=== PATIENT | female | born 1950 | race Caucasian/White ===

== ENCOUNTER 2017-11-28 08:24 | Outpatient (REF) | payer OTHER, SELFPAY ==
[2017-11-28 12:53] LABS: HCT 41.7 % (36.0-46.0); Mean Corp. HGB Concentration 33.6 g/dL (32.0-36.0); Mean Corpuscular Hemoglobin 31.7 pg (27.0-33.0); Mean Corpuscular Volume 94.3 fL (80-95); Platelet Count 216 x1000/uL (130-400); RBC 4.42 m/cumm (4.00-5.20); RBC Distribution Width 13.2 % (11.7-14.6)
[2017-11-28 13:39] LABS: ALT 38 U/L (12-78); AST 20 U/L (15-37); Albumin 3.6 g/dL (3.4-5.0); Alkaline Phosphatase 85 U/L (46-116); BUN 14 mg/dL (7-18); Bilirubin, Total 0.6 mg/dL (0.2-1.0); CREATININE 0.98 mg/dL (0.55-1.02); Chloride 104 mmol/L (98-107); Cholesterol 156 mg/dL (50-200); Estimated GFR 56.27 (mL/min/1.73m2); Glucose 189 mg/dL (70-100); HDL Cholesterol 65 mg/dL (40-60); LDL CHOLESTEROL 82 mg/dL (<100); Potassium 4.7 mmol/L (3.5-5.1); Sodium 140 mmol/L (136-145); Total Protein 7.4 g/dL (6.4-8.2); Triglyceride 124 mg/dL (30-150)
== END 2017-11-28 08:44 ==
LOC: NCHCN 08:24
PROVIDERS: Visit Provider Family Medicine
DX: E11.9 Type 2 diabetes mellitus without complications (principal); I10 Essential (primary) hypertension
CPT/HCPCS: 80053; 80061; 83721; 85027

== ENCOUNTER 2017-12-25 01:05 | Outpatient (CLI) | payer OTHER, SELFPAY ==
--- NOTE | 2017-12-25 11:55 | DI.MAMMO_ITS ---
SYMPTOMS/DIAGNOSIS: SCREENING, Z12.31 MAMMOGRAM: Mammograms were interpreted according to the usual protocol including computer analysis with CAD system, tomosynthesis and C view imaging. Comparison is made with exams from 2009 through 2015. The breasts are composed of scattered fibroglandular densities, breast density Category B. No suspicious masses or suspicious microcalcifications are seen. There has been no significant change. IMPRESSION: Category I B, negative mammogram. Routine screening is recommended. [facility] ASSESSMENT OF FINDINGS: Negative. Category 1. Patient will receive a letter notifying them of these results. BI-RADS category B. There are scattered areas of fibroglandular density.
== END 2017-12-25 01:25 ==
PROVIDERS: PCP Family Medicine; Visit Provider Family Medicine
DX: Z12.31 Encounter for screening mammogram for malignant neoplasm of breast (principal)
CPT/HCPCS: 77063; 77067

== ENCOUNTER 2019-11-23 03:39 | Outpatient (CLI) | payer OTHER, SELFPAY ==
--- NOTE | 2019-11-23 15:05 | DI.MAMMO_ITS ---
EXAM: MAMMO SCREENING CLINICAL HISTORY: SCREENING,Z12.31 TECHNIQUE: Mammograms were interpreted according to the usual protocol including computer analysis w [employer] CAD system, tomosynthesis and C-view imaging. COMPARISON: 2010 through 2017. FINDINGS: The breasts are composed of scattered fibroglandular densities, Breast Density category B. No suspicious masses or suspicious microcalcifications are seen. No skin thickening or abnormal axillary lymph nodes are seen. There has been no significant change from prior exams. IMPRESSION: BI-RADS Category 1, Negative mammogram Yearly screening mammography is recommended. Breast Density - Category B, scattered fibroglandular densities. A negative radiographic report should not delay biopsy if a dominant or clinically suspicious mass is present. Up to ten percent of cancers are not identified on mammography. A negative report may reinforce clinical impression. Adenosis and dense breasts may obscure an underlying neoplasm. False positive reports average 6 to 10%. Patient will receive a letter notifying them of these results.
== END 2019-11-23 03:59 ==
PROVIDERS: PCP Family Medicine; Visit Provider Family Medicine
DX: Z12.31 Encounter for screening mammogram for malignant neoplasm of breast (principal)
CPT/HCPCS: 77063; 77067

== ENCOUNTER 2021-12-17 11:41 | Outpatient (CLI) | payer MEDICARE, SELFPAY ==
--- NOTE | 2021-12-17 11:15 | DI.RAD_ITS ---
Exam(s) XR KNEE RT 3V AP,LAT,AMY EXAM: XR KNEE RT 3V AP,LAT,AMY CLINICAL HISTORY: R knee pain. TECHNIQUE: 2D digital imaging was performed. Three views. COMPARISON: No exams were available for comparison FINDINGS: BONES: No acute fracture is present. No bony destructive lesion is seen. JOINTS: There is severe narrowing of the medial femoral tibial joint space with prominent periarticul ar spurring. Spurring is also noted at the lateral femoral tibial joint and patellofemoral joint. S purring is also present at the tibial spines and femoral intercondylar notch. No joint effusion is s een. SOFT TISSUE: Normal. IMPRESSION: Severe degenerative changes of the medial femoral tibial joint. DATA REPOSITORY: RADIATION DOSE DELIVERED:
== END 2021-12-17 11:42 | disposition home or self-care (01) ==
LOC: DIORS 11:41
PROVIDERS: PCP Family Medicine; Referring Provider Family Medicine; Visit Provider Physician Assistant
DX: M17.11 Unilateral primary osteoarthritis, right knee
CPT/HCPCS: 73562; 99203

== ENCOUNTER 2022-08-15 03:24 | Outpatient (CLI) | payer MEDICARE, SELFPAY ==
--- NOTE | 2022-08-15 | DI.NM_ITS ---
APPROVED REPORT Exam: Exercise Treadmill Patient Location: Out-Patient Room/Bed: Stress Nurse: Lizeth White RN Ordering Provider:RAFFI HILARIO, Contact Number: [phone] BMI: 27.28 Baseline Rhythm: Sinus Bradycardia Indications: Angina, DM Medical History Medical History: HTN,HLD, OA of right knee, DM Cardiac Medications: Metformin, Lisinopril, Atorvastatin Allergies: NKA Cardiac Risk Factors: +HTN, +HLD,+DM, history of smoking Previous Cardiac Procedures: None Pretest Chest Pain Characteristics: None Exercise History: Indeterminate Physical Disabilities: None Lung Sounds: LCTA bilaterally Heart Sounds: Regular, S1/S2 Stress Test Details Test: Exercise stress testing was performed using a Gavin protocol. Nuclear Acquisition: Rest Tc-99m/Stress Tc-99m 1 day Rest Isotope: Tc-99m Sestamibi. Dose: 9.4 Date: 08/15/2022 Injection Time: 09:00 Stress Isotope: Tc-99m Sestamibi. Dose: 29.5 Date: 08/15/2022 Injection Time: 10:55 HR Resting HR Supine: 52 bpm Max Heart Rate (APMHR): 147.121644 bpm Resting HR Standin bpm Target HR (85% APMHR): 124.801012 bpm Max HR Achieved: 138 bpm % of APMHR: 93.88 Recovery HR: 63 bpm HR response to stress: Normal HR response to stress BP Resting BP Supine: 128/72 mmHg Resting BP Standin/74 mmHg Max BP: 172/52 mmHg Recovery BP: 140/72 mmHg BP response to stress: Normal blood pressure response to stress. ECG Resting ECG: Sinus Bradycardia Ectopy: PVC's Stress ECG: Sinus Tachycardia ST Change: No significant ST segment changes noted Arrhythmia: PVC's Recovery ECG: Sinus Rhythm Recovery ST Change: No significant ST segment changes noted Recovery Arrhythmia: PVC's Clinical Reason for Termination: Fatigue Stress Symptoms: General Fatigue Exercise duration: 5 min11 sec Highest Stage Reached: Stage 2: 2.5 mph at 12% grade. Exercise capacity: 7.05 METs Angina Score: None Sheth Treadmill Score: 4.5 Rate Pressure Product: 80131 Stress ECG Conclusion 1. Resting electrocardiogram was within normal limits 2. Patient exercised on the Gavin protocol and completed a workload of 7.05 METS 3. Normal heart rate and blood pressure response to exercise. The patient achieved 94% of predicted heart rate for age 4. There was no electrocardiographic evidence of myocardial ischemia 5. There were no significant dysrhythmias 6. See MPI report Sheth Treadmill Score is 4.5 which is Moderate risk. Stress Test Summary STAGE Time (mins) Speed (mph) Grade (%) HR BP SpO2 SYMPTOMS METS Supine 52 128/72 98% Standing 70 132/74 1 3 1.7 10 114 148/60 95% 4.5 2 6 2.5 12 133 7 1 min recovery 121 172/52 3 min recovery 67 150/58 6 min recovery 63 140/72 MPI Conclusion Myocardial perfusion is normal. There is no ischemia or evidence of prior infarction Ejection fraction is 63% with normal wall motion Radiologist Interpretation Radiologist Interpretation by: Robby Erazo MD Interpretation Date/Time: 08/21/2022 15:48:24
== END 2022-08-15 03:44 ==
LOC: DI 03:24
PROVIDERS: PCP Family Medicine; Visit Provider Family Medicine
DX: I20.9 Angina pectoris, unspecified (principal)
CPT/HCPCS: 78452; 93016; 93018; 93017

== ENCOUNTER 2022-11-21 22:55 | Outpatient (REF) | payer MEDICARE, SELFPAY ==
[2022-11-21 22:37] LABS: BUN 20 mg/dL (7-18); Calcium 9.1 mg/dL (8.5-10.1); Calculated LDL 69 mg/dL (<100); Chloride 103 mmol/L (98-107); Cholesterol 128 mg/dL (<200); Estimated GFR 59.12 (mL/min/1.73m2); Glucose 123 mg/dL (74-106); HDL Cholesterol 45 mg/dL (40-60); Potassium 4.5 mmol/L (3.5-5.1); Sodium 138 mmol/L (136-145); Triglyceride 74 mg/dL (<150)
== END 2022-11-21 22:56 | disposition home or self-care (01) ==
LOC: NCHCN 22:55
PROVIDERS: PCP Family Medicine; Visit Provider Family Medicine
DX: I10 Essential (primary) hypertension (principal); M54.9 Dorsalgia, unspecified; R82.79 Other abnormal findings on microbiological examination of urine; E78.5 Hyperlipidemia, unspecified
CPT/HCPCS: 80048; 80061; 87077; 87086; 87186

== ENCOUNTER 2022-12-02 18:26 | Outpatient (REF) | payer MEDICARE, SELFPAY ==
[2022-12-02 21:42] LABS: ESR 74 mm/hr (0-30)
[2022-12-02 21:47] LABS: Abs Immature Grans 0.03 10^3/uL (0.0-0.06); Absolute Basophil Count 0.06 10^3/uL (0.0-0.2); Absolute Eosinophil Count 0.22 10^3/uL (0.0-0.7); Absolute Lymphocyte Count 1.27 10^3/uL (1.2-3.4); Absolute Monocyte Count 0.96 10^3/uL (0.1-0.8); Absolute Neutrophil Count 7.42 10^3/uL (1.2-6.7); Basophils % 0.6; Eosinophils % 2.2; HCT 29.2 % (36.0-46.0); HGB 9.8 g/dL (11.2-15.7); Immature Grans % 0.3; Lymphocytes % 12.8; MCH 30.7 pg (27.0-33.0); MCHC 33.6 % (32.0-36.0); MCV 92 fL (80-95); MPV 9.8 fL (8.0-11.0); Monocytes % 9.6; Neutrophils % 74.5; Platelet Count 495 10^3/uL (130-400); RBC 3.19 10^6/uL (3.93-5.22); RDW 11.9 % (11.7-14.6); RDW-SD 40.3 fL; WBC 9.96 10^3/uL (4.4-10.8)
[2022-12-02 22:14] LABS: ALT 40 U/L (14-59); AST 28 U/L (15-37); Albumin 2.6 g/dL (3.4-5.0); Alkaline Phosphatase 80 U/L (46-116); Anion Gap 8.4 mmol/L (3-11); BUN 16 mg/dL (7-18); Bilirubin, Total 0.3 mg/dL (0.2-1.0); CO2 26.6 mmol/L (21.0-32.0); Calcium 9.6 mg/dL (8.5-10.1); Chloride 101 mmol/L (98-107); Estimated GFR 59.12 (mL/min/1.73m2); Glucose 130 mg/dL (74-106); Potassium 4.1 mmol/L (3.5-5.1); Sodium 136 mmol/L (136-145); Total Protein 7.2 g/dL (6.4-8.2)
[2022-12-04 10:29] LABS: Lyme Ab w Rflx to Lyme Confirm Negative (Negative)
[2022-12-05 20:06] LABS: Anaplasma phagocytophilum Negative (Negative); B. miyamotoi PCR Negative (Negative); Babesia divergens/MO-1 Negative (Negative); Babesia duncani Negative (Negative); Babesia microti Negative (Negative); Ehrlichia chaffeensis Negative (Negative); Ehrlichia ewingii/canis Negative (Negative); Ehrlichia muris eauclairensis Negative (Negative)
== END 2022-12-02 18:27 | disposition home or self-care (01) ==
LOC: NCHCN 18:26
PROVIDERS: PCP Family Medicine; Visit Provider Family Medicine
DX: M54.2 Cervicalgia (principal); R70.0 Elevated erythrocyte sedimentation rate; R73.09 Other abnormal glucose; I10 Essential (primary) hypertension; Z11.8 Encounter for screening for other infectious and parasitic diseases
CPT/HCPCS: 80053; 85652; 87798; 85025; 86618

== ENCOUNTER → 2022-12-05 02:22 | Outpatient (CLI) | payer MEDICARE, SELFPAY ==
--- NOTE | 2022-12-05 | DI.RAD_ITS ---
Exam(s) XR CERVICAL SPINE COMP 4-5V EXAM: XR CERVICAL SPINE COMP 4-5V CLINICAL HISTORY: NECK PAIN, M54.2. TECHNIQUE: 2D digital imaging was performed. COMPARISON: No exams were available for comparison FINDINGS: BONES: No fracture or destructive lesion. Vertebral bodies are unremarkable. Facet degenerative taisha nges noted throughout, greatest at C3-4 and C7-T1. DISKS: Mild narrowing at the C5-6 disc space with endplate osteophytes. Small osteophytes noted at C 6-7. Mild neural foraminal narrowing on the right at C5-6 and C6-7. Significant neural foraminal na rrowing on the left at C3-4. ALIGNMENT: Cervical spinal alignment is within normal limits. The odontoid and atlantoaxial articulat ions are normal. SOFT TISSUE: Normal. The lung apices are clear. IMPRESSION: Degenerative disc changes greatest at C5-6. Facet encroachment to the left neural foramen at C3-4. DATA REPOSITORY: RADIATION DOSE DELIVERED:
== END ==
PROVIDERS: PCP Family Medicine; Visit Provider Family Medicine
DX: M50.322 Other cervical disc degeneration at C5-C6 level (principal); M99.71 Connective tissue and disc stenosis of intervertebral foramina of cervical region
CPT/HCPCS: 72050

== ENCOUNTER 2022-12-11 15:32 | Outpatient (REF) | payer MEDICARE, SELFPAY ==
[2022-12-11 18:38] LABS: C-Reactive Protein 5.45 mg/dL (0.0-0.3); Creatine Kinase 36 U/L (26-192); LDH 202 U/L (81-234)
[2022-12-11 19:16] LABS: Vitamin B12 642 pg/mL (193-986)
[2022-12-11 20:41] LABS: Iron 24 ug/dL (50-170); Total Iron Binding Capacity 235 ug/dL (250-450); Transferrin Sat 10 % (15-50)
[2022-12-12 09:00] LABS: ESR (LRH) 89 mm/hr
[2022-12-12 18:05] LABS: Rheumatoid Factor <8.6 IU/mL (<12.0)
[2022-12-13 09:39] LABS: Cyclic Citrullinated Peptide <2.5 U/mL (<5.0)
[2022-12-13 13:15] LABS: ANA Interpretation Positive (Negative); ANA Titer Pattern 1:160 Speckled
[2022-12-13 13:46] LABS: Comment (See Note); Total Protein 7.6 g/dL (6.3-8.2)
[2022-12-18 08:21] LABS: Immunotyping, Serum (See Note)
== END 2022-12-11 15:33 | disposition home or self-care (01) ==
LOC: NCHCN 15:32
PROVIDERS: PCP Family Medicine; Visit Provider Family Medicine
DX: D64.9 Anemia, unspecified (principal); E11.9 Type 2 diabetes mellitus without complications; I10 Essential (primary) hypertension; N30.00 Acute cystitis without hematuria; M54.59 Other low back pain; R70.0 Elevated erythrocyte sedimentation rate; Z79.899 Other long term (current) drug therapy; E78.5 Hyperlipidemia, unspecified
CPT/HCPCS: 82550; 85652; 86200; 82565; 82607; 83540; 83550; 83615; 84156; 84165; 86038; 86140; 86320; 86431

== ENCOUNTER → 2022-12-12 09:36 | Outpatient (CLI) | payer MEDICARE, SELFPAY ==
--- NOTE | 2022-12-12 | DI.RAD_ITS ---
Exam(s) XR CHEST 2V PA LATERAL EXAM: XR CHEST 2V PA LATERAL CLINICAL HISTORY: SUPRACLAVICULAR LYMPHADENOPATHY,R59.0. TECHNIQUE: 2D digital imaging was performed. COMPARISON: No exams were available for comparison FINDINGS: 2 views: Heart size is normal. The mediastinum is not widened. Lungs are clear. No infiltrates nor pleural effusions. IMPRESSION: No acute pulmonary findings. DATA REPOSITORY: RADIATION DOSE DELIVERED:
--- NOTE | 2022-12-12 | DI.RAD_ITS ---
Exam(s) XR WRIST RT COMPLETE EXAM: XR WRIST RT COMPLETE CLINICAL HISTORY: WRIST ATHRALGIA,M25.539. TECHNIQUE: 2D digital imaging was performed. COMPARISON: No exams were available for comparison FINDINGS: 3 views No evidence of acute fracture nor dislocation. No significant ulnar variance. Calcifications noted in triangular fibrocartilage on the medial aspect of the wrist. There is some degenerative change at the try scaphoid joint. First carpometacarpal joint appears unremarkable. Scapholunate distance no rmal. Radiocarpal joint appears unremarkable. IMPRESSION: Degenerative changes as described above. No fracture evident. DATA REPOSITORY: RADIATION DOSE DELIVERED:
== END ==
PROVIDERS: PCP Family Medicine; Visit Provider Family Medicine
DX: M19.031 Primary osteoarthritis, right wrist (principal); R59.0 Localized enlarged lymph nodes
CPT/HCPCS: 71046; 73110

== ENCOUNTER 2022-12-12 11:07 | Outpatient (REF) | payer MEDICARE, SELFPAY ==
[2022-12-12 14:32] LABS: Bilirubin Negative (Negative); Blood Negative (Negative); Clarity Clear (Clear); Glucose Negative (Negative); Ketones Negative (Negative); Leukocyte Esterase Trace (Negative); Nitrite Negative (Negative); Urobilinogen 0.2 mg/dL (Up to 0.2); pH 5.5 (5-8)
[2022-12-12 17:53] LABS: Creatinine,Urine 87.19 mg/dL
== END 2022-12-12 11:08 | disposition home or self-care (01) ==
LOC: NCHCN 11:07
PROVIDERS: PCP Family Medicine; Visit Provider Family Medicine
DX: E11.9 Type 2 diabetes mellitus without complications (principal); I10 Essential (primary) hypertension; D64.9 Anemia, unspecified
CPT/HCPCS: 81003; 82565

== ENCOUNTER 2022-12-18 10:04 | Emergency (ER) | payer MEDICARE, SELFPAY ==
[2022-12-18] VITALS (47 sets, daily range): BP systolic 105–146; BP diastolic 44–58; PULSE 49–63; RESP 11–22; TEMP 36.4; O2SAT 94–100
--- NOTE | 2022-12-18 09:45 | RT.EKG_ITS ---
APPROVED REPORT Exam: Resting ECG Reason for Exam: syncopal, hypotensive Patient Location: E HR:55 bpm ECG Measurements Heart Rate 55 AXIS WA 140 P 59 QRSd 100 QRS -2 QT 455 T 66 QTc 435 Conclusion Sinus bradycardia...rate< 60
--- NOTE | 2022-12-18 10:58 | ED.GENADUL_ITS ---
Discharge Plan Disposition Patient Disposition: Home Condition: Stable Discharge Details Clinical Impression: Vasovagal syncope, Leukocytosis, Anemia Primary Care Provider: Bibiana Rodríguez ED Provider: Moustapha Bell Home Meds and New Rx's Prescriptions: Continued atorvastatin 10 mg tablet 10 mg PO DAILY lisinopril 10 mg tablet 10 mg PO DAILY prednisone 10 mg Tablet 10 mg PO DIRECTED Rx Instructions: see taper instructions- Take 5 tablets once daily for 5 days, 3 tabs once daily for 3 days, 2 tabs once daily for 3 days, 1 tab once daily for 3 days- ordered 12/11/22 glipizide 10 mg Tablet Extended Release 24hr 10 mg PO DAILY ferrous sulfate 325 mg (65 mg iron) Tablet 325 mg PO DAILY Januvia 100 mg Tablet 100 mg PO DAILY diclofenac sodium [Voltaren Arthritis Pain] 1 % Gel 4 g TOPICAL QID Patient Comments: Just ordered- has not started yet 12/18/22 CT Rx Instructions: apply to single knee, ankle, foot; for foot includes sole/toes/top of foot Discontinued metformin 500 mg tablet 1,000 mg PO BID Patient Comments: no longer taking 12/18/22 CT Discharge Instructions Instructions: Syncope (ED), Anemia (ED) Additional Instructions: Please maintain adequate hydration allow for plenty of rest. Please contact your primary care physician to arrange follow-up. Return to the ER immediately for any worsening or new concerning symptoms. Referrals: Bibiana Rodríguez [Primary Care Provider] - Medical Decision Making 11:00-? 72-year-old female sent by PCP for syncopal episode during blood draw today with associated chest discomfort. Patient now asymptomatic. Of note she was generally weak this morning. Patient now hemodynamically stable. Suspect vasovagal syncope in setting of hypovolemia. Consider arrhythmia and ACS. Initial EKG was reviewed and interpreted by me: Please see report, no STEMI. 14:45 --labs reviewed: Initial troponin and delta troponin at 3 hours negative. Leukocytosis of 20,000 noted. Patient has had no fever or chills. Patient has had no urinary symptoms. Urinalysis was checked and she does have 5-10 WBCs, 0- 2 RBCs, negative nitrite, few bacteria with rare epithelial cells. Clinical picture not consistent with urinary tract infection. Urine culture has been sent. I suspect leukocytosis is secondary to prednisone use. Patient did just have chest x-ray performed on 12/12/2022 that showed no acute pulmonary findings. Patient reassessed remained hemodynamically stable. No complaints. All results were discussed with the patient. Plan for discharge with outpatient follow-up. I recommended she have repeat CBC later this week. She was encouraged to call her doctor today to arrange follow- up. Disposition decision was made weighing the risks and benefits of hospitalization versus outpatient treatment, the risk for further decompensation, and the patient's wishes. The patient was stable and requested discharge. Prior to discharge, my usual and customary return precautions were reviewed with the patient - this included follow-up instructions and reason to return to the emergency department if condition worsens, does not improve as expected, or other new concerns arise. Lab Data Lab results reviewed: Yes I reviewed the patient's lab results. Labs: 12/18/22 12:45 Urine - Reflex from Ua Urine Culture - Pending Laboratory Tests Range/Units 12/18/22 12/18/22 12/18/22 10:08 10:08 10:08 WBC (4.4-10.8) 10^3/uL 20.59 H RBC (3.93-5.22) 10^6/uL 3.54 L Hgb (11.2-15.7) g/dL 10.6 L Hct (36.0-46.0) % 32.1 L MCV (80-95) fL 91 MCH (27.0-33.0) pg 29.9 MCHC (32.0-36.0) % 33.0 RDW (11.7-14.6) % 12.8 Plt Count (130-400) 10^3/uL 473 H MPV (8.0-11.0) fL 9.8 Immature Gran % 0.7 Neutrophils % 86.5 Lymphocytes % 7.3 Monocytes % 4.9 Eosinophils % 0.4 Basophils % 0.2 Nucleated RBC % (0.0-0.3) % 0.0 Absolute Neutrophils (1.2-6.7) 10^3/uL 17.81 H Absolute Lymphocytes (1.2-3.4) 10^3/uL 1.50 Absolute Monocytes (0.1-0.8) 10^3/uL 1.01 H Absolute Eosinophils (0.0-0.7) 10^3/uL 0.08 Absolute Basophils (0.0-0.2) 10^3/uL 0.04 APTT Cancelled Sodium (136-145) mmol/L 135 L Potassium (3.5-5.1) mmol/L 3.5 Chloride (98-107) mmol/L 101 Carbon Dioxide (21.0-32.0) mmol/L 25.7 Anion Gap (3-11) mmol/L 8.3 BUN (7-18) mg/dL 32 H Creatinine (0.55-1.02) mg/dL 1.1 H Est GFR (CKD-EPI 2020) (mL/min/1.73m2) 52.73 Glucose (74-106) mg/dL 148 H Calcium (8.5-10.1) mg/dL 9.6 Magnesium (1.8-2.4) mg/dL 1.8 Total Bilirubin (0.2-1.0) mg/dL 0.3 AST (15-37) U/L 16 ALT (14-59) U/L 26 Alkaline Phosphatase (46-116) U/L 84 Troponin I (<or=60) ng/L < 50 Total Protein (6.4-8.2) g/dL 7.7 Albumin (3.4-5.0) g/dL 2.8 L Urine Color (Yellow) Urine Clarity (Clear) Urine pH (5-8) Ur Specific [place] (1.005-1.025) Urine Protein (Negative) mg/dL Urine Ketones (Negative) mg/dL Urine Blood (Negative) Urine Nitrite (Negative) Urine Bilirubin (Negative) Urine Urobilinogen (Up to 0.2) mg/dL Ur Leukocyte Esterase (Negative) Urine RBC (0-2) HPF Urine WBC (0-5) HPF Ur Epithelial Cells (Negative) HPF Urine Crystals (Negative) HPF Urine Bacteria (Negative) HPF Urine Casts (Negative) LPF Urine Mucus (Negative) Ur Culture Indicated? Urine Glucose (Negative) mg/dL Range/Units 12/18/22 12/18/22 12/18/22 12:11 12:45 13:43 WBC (4.4-10.8) 10^3/uL RBC (3.93-5.22) 10^6/uL Hgb (11.2-15.7) g/dL Hct (36.0-46.0) % MCV (80-95) fL MCH (27.0-33.0) pg MCHC (32.0-36.0) % RDW (11.7-14.6) % Plt Count (130-400) 10^3/uL MPV (8.0-11.0) fL Immature Gran % Neutrophils % Lymphocytes % Monocytes % Eosinophils % Basophils % Nucleated RBC % (0.0-0.3) % Absolute Neutrophils (1.2-6.7) 10^3/uL Absolute Lymphocytes (1.2-3.4) 10^3/uL Absolute Monocytes (0.1-0.8) 10^3/uL Absolute Eosinophils (0.0-0.7) 10^3/uL Absolute Basophils (0.0-0.2) 10^3/uL APTT 23.2 Sodium (136-145) mmol/L Potassium (3.5-5.1) mmol/L Chloride (98-107) mmol/L Carbon Dioxide (21.0-32.0) mmol/L Anion Gap (3-11) mmol/L BUN (7-18) mg/dL Creatinine (0.55-1.02) mg/dL Est GFR (CKD-EPI 2020) (mL/min/1.73m2) Glucose (74-106) mg/dL Calcium (8.5-10.1) mg/dL Magnesium (1.8-2.4) mg/dL Total Bilirubin (0.2-1.0) mg/dL AST (15-37) U/L ALT (14-59) U/L Alkaline Phosphatase (46-116) U/L Troponin I (<or=60) ng/L < 50 Total Protein (6.4-8.2) g/dL Albumin (3.4-5.0) g/dL Urine Color (Yellow) Yellow Urine Clarity (Clear) Clear Urine pH (5-8) 5.5 Ur Specific [place] (1.005-1.025) 1.025 Urine Protein (Negative) mg/dL Negative Urine Ketones (Negative) mg/dL Trace H Urine Blood (Negative) Negative Urine Nitrite (Negative) Negative Urine Bilirubin (Negative) Negative Urine Urobilinogen (Up to 0.2) mg/dL 0.2 Ur Leukocyte Esterase (Negative) Small H Urine RBC (0-2) HPF 0-2 Urine WBC (0-5) HPF 5-10 Ur Epithelial Cells (Negative) HPF Rare Urine Crystals (Negative) HPF Negative Urine Bacteria (Negative) HPF Few Urine Casts (Negative) LPF Negative Urine Mucus (Negative) Moderate Ur Culture Indicated? Yes Urine Glucose (Negative) mg/dL Negative HPI General Mode of arrival: ambulatory . Date/Time Provider Initiated Documentation: 12/18/22 10:25 . Limitations to Documentation: no limitations . Information obtained by: patient and RN/MD . HPI Narrative: 72-year-old female with history of diabetes, presents with chief complaint of syncope. Patient was having blood drawn at PCP office and felt dizzy and lost consciousness. She was laid down and symptoms improved. His symptoms did seem to wax and wane for a period of time. IV was placed and she received 1 L of crystalloid. Patient now notes she is feeling better. Asymptomatic at this time. Patient notes that she experienced some indigestion during the episode. She has no chest discomfort abdominal pain at this time. Patient is being worked up actively by PCP. Polyarthralgia with labs notable for anemia, low albumin, elevated ESR. Related Data Home Medications Medication Instructions Recorded Confirmed atorvastatin 10 mg tablet 10 mg PO DAILY 10/17/21 12/18/22 lisinopril 10 mg tablet 10 mg PO DAILY 10/17/21 12/18/22 diclofenac sodium 1 % topical gel 4 g topical QID 12/18/22 12/18/22 (Voltaren Arthritis Pain) ferrous sulfate 325 mg (65 mg 325 mg PO DAILY 12/18/22 12/18/22 iron) tablet glipizide 10 mg tablet, extended 10 mg PO DAILY 12/18/22 12/18/22 release 24 hr prednisone 10 mg tablet 10 mg PO DIRECTED 12/18/22 12/18/22 sitagliptin phosphate 100 mg 100 mg PO DAILY 12/18/22 12/18/22 tablet (Januvia) Allergies Allergy/AdvReac Type Severity Reaction Status Date / Time No Known Allergies Allergy Verified 12/18/22 10:07 General Stated Complaint: [id number] HOLLIS: 3 Review of Systems All systems reviewed & are unremarkable except as noted in HPI and below Constitutional Constitutional: Denies fever(s) Cardiovascular Cardiovascular: Reports as per HPI PFSH All Active Problems (Updated 12/18/22 @ 14:48 by Moustapha Bell MD) Vasovagal syncope (Acute) Leukocytosis (Acute) Anemia (Chronic) Primary osteoarthritis of right knee (Acute) Hypertension (Chronic) Hyperlipidemia (Acute) Diabetes mellitus (Chronic) Social History Smoking/Tobacco Use Status: Never Smoking risk assessment performed?: Yes Alcohol Intake: never Drug use: Never Substance use type: does not use Exam Const General: cooperative and no acute distress HENMT Mouth: moist mucous membranes Eyes Conjunctivae: normal conjunctivae Sclera: normal sclerae Neck Neck: trachea midline and supple Resp Auscultation: clear to auscultation bilaterally, no rales, no rhonchi and no w heezes Cardio Rate: regular rate and not tachycardic Rhythm: regular rhythm GI Palpation: soft, not firm, no guarding, no masses, not rigid and nontender Skin General skin exam: no rashes or lesions noted Neuro General: patient alert, patient awake, patient oriented x3 and tone normal Extrem General: no calf tenderness and no edema Psych Appearance: grossly normal Mental Status: mental status grossly normal Course Vital Signs Vital signs: Vital Signs Temperature 36.4 C 12/18/22 10:02 Pulse 56 L 12/18/22 10:02 Respiratory Rate 16 12/18/22 10:02 Blood Pressure 142/52 H 12/18/22 10:02 Pulse Oximetry 99 12/18/22 10:02 Temperature 36.4 C 12/18/22 10:02 Temperature Source Oral 12/18/22 10:02 Pulse 56 L 12/18/22 10:02 Respiratory Rate 16 12/18/22 10:02 Respiratory Effort Normal, Non-Labored 12/18/22 10:20 Respiratory Depth Normal 12/18/22 10:20 Respiratory Pattern Normal 12/18/22 10:20 Blood Pressure 142/52 H 12/18/22 10:02 Blood Pressure Position Supine 12/18/22 10:02 Pulse Oximetry 99 12/18/22 10:02 Oxygen Delivery Method Room Air 12/18/22 10:02 Oxygen Flow Rate 0 12/18/22 10:02 Pain Level 0 12/18/22 10:02
[2022-12-18 11:20] LABS: Abs Immature Grans 0.15 10^3/uL (0.0-0.06); Absolute Basophil Count 0.04 10^3/uL (0.0-0.2); Absolute Monocyte Count 1.01 10^3/uL (0.1-0.8); Basophils % 0.2; Eosinophils % 0.4; HCT 32.1 % (36.0-46.0); HGB 10.6 g/dL (11.2-15.7); Immature Grans % 0.7; Lymphocytes % 7.3; MCH 29.9 pg (27.0-33.0); MCV 91 fL (80-95); MPV 9.8 fL (8.0-11.0); Monocytes % 4.9; Neutrophils % 86.5; Platelet Count 473 10^3/uL (130-400); RBC 3.54 10^6/uL (3.93-5.22); RDW 12.8 % (11.7-14.6); RDW-SD 42.1 fL; WBC 20.59 10^3/uL (4.4-10.8)
[2022-12-18 11:21] LABS: Absolute Eosinophil Count 0.08 10^3/uL (0.0-0.7); Absolute Neutrophil Count 17.81 10^3/uL (1.2-6.7)
[2022-12-18 11:40] LABS: ALT 26 U/L (14-59); AST 16 U/L (15-37); Albumin 2.8 g/dL (3.4-5.0); Alkaline Phosphatase 84 U/L (46-116); Anion Gap 8.3 mmol/L (3-11); BUN 32 mg/dL (7-18); Bilirubin, Total 0.3 mg/dL (0.2-1.0); CO2 25.7 mmol/L (21.0-32.0); CREATININE 1.1 mg/dL (0.55-1.02); Calcium 9.6 mg/dL (8.5-10.1); Chloride 101 mmol/L (98-107); Estimated GFR 52.73 (mL/min/1.73m2); Glucose 148 mg/dL (74-106); Magnesium 1.8 mg/dL (1.8-2.4); Potassium 3.5 mmol/L (3.5-5.1); Sodium 135 mmol/L (136-145); Total Protein 7.7 g/dL (6.4-8.2); Troponin I < 50 ng/L (<or=60)
[2022-12-18 12:26] LABS: PTT Activated 23.2 sec (21.5-31.9)
[2022-12-18 12:56] LABS: Bilirubin Negative (Negative); Blood Negative (Negative); Clarity Clear (Clear); Glucose Negative (Negative); Ketones Trace mg/dL (Negative); Leukocyte Esterase Small (Negative); Nitrite Negative (Negative); Specific Gravity 1.025 (1.005-1.025); Urobilinogen 0.2 mg/dL (Up to 0.2); pH 5.5 (5-8)
[2022-12-18 13:06] LABS: Bacteria Few HPF (Negative); Crystals Negative HPF (Negative); Epithelial Cells Rare HPF (Negative); Mucus Moderate (Negative); RBC 0-2 HPF (0-2)
[2022-12-18 13:07] LABS: C & S Indicated? Yes; Casts Negative LPF (Negative)
[2022-12-18 14:05] LABS: Troponin I < 50 ng/L (<or=60)
[2022-12-18 14:56] LABS: Source Nasal/Nares
[2022-12-18 15:31] LABS: COVID-19 PCR Negative (Negative)
[2022-12-19 10:04] LABS: Lyme Ab w Rflx to Lyme Confirm Negative (Negative)
[2022-12-21 10:03] LABS: Anaplasma phagocytophilum Negative (Negative); B. miyamotoi PCR Negative (Negative); Babesia divergens/MO-1 Negative (Negative); Babesia duncani Negative (Negative); Babesia microti Negative (Negative); Ehrlichia chaffeensis Negative (Negative); Ehrlichia ewingii/canis Negative (Negative); Ehrlichia muris eauclairensis Negative (Negative)
== END 2022-12-18 15:02 | disposition home or self-care (01) ==
LOC: ER 15:10
PROVIDERS: Emergency Provider Student in an Organized Health Care Education/Training Program; PCP Family Medicine
DX: R55 Syncope and collapse (principal); R00.1 Bradycardia, unspecified; D72.829 Elevated white blood cell count, unspecified; D64.9 Anemia, unspecified; I10 Essential (primary) hypertension; E78.5 Hyperlipidemia, unspecified; E11.9 Type 2 diabetes mellitus without complications; Z79.84 Long term (current) use of oral hypoglycemic drugs
CPT/HCPCS: 36415; 80053; 87635; 87798; 93005; 99283; 81003; 81015; 83735; 84484; 85025; 85730; 86618; 87086; 93010; 99284

== ENCOUNTER 2022-12-18 10:14 | Outpatient (REF) | payer MEDICARE, SELFPAY ==
[2022-12-19 17:54] LABS: Scl 70 Antibodies, IgG <0.2 U
[2022-12-20 12:47] LABS: SS-B (La) Ab, IgG 2.3 Units (<20.0)
[2022-12-20 12:56] LABS: SS-A Antibody 3.5 Units (<20.0)
[2022-12-20 14:13] LABS: dsDNA Ab, IgG <12.3 IU/mL (<30.0)
[2022-12-20 15:07] LABS: RNP Ab, IgG 2.6 Units (<20.0); Sm (Smith) Ab, IgG 4.3 Units (<20.0)
== END 2022-12-18 10:15 | disposition home or self-care (01) ==
LOC: NCHCN 10:14
PROVIDERS: PCP Family Medicine; Visit Provider Family Medicine
DX: R76.0 Raised antibody titer (principal)
CPT/HCPCS: 86225; 86235

== ENCOUNTER 2022-12-20 15:25 | Outpatient (REF) | payer MEDICARE, SELFPAY ==
[2022-12-20 16:56] LABS: Abs Immature Grans 0.11 10^3/uL (0.0-0.06); Absolute Lymphocyte Count 3.07 10^3/uL (1.2-3.4); Basophils % 0.2; Eosinophils % 1.6; HCT 35.3 % (36.0-46.0); HGB 11.7 g/dL (11.2-15.7); Immature Grans % 0.7; Lymphocytes % 18.4; MCH 29.8 pg (27.0-33.0); MCHC 33.1 % (32.0-36.0); MCV 90 fL (80-95); Monocytes % 7.4; Neutrophils % 71.7; Platelet Count 488 10^3/uL (130-400); RBC 3.93 10^6/uL (3.93-5.22); RDW 13.4 % (11.7-14.6); RDW-SD 43.7 fL; WBC 16.71 10^3/uL (4.4-10.8)
[2022-12-20 17:21] LABS: Absolute Basophil Count 0.03 10^3/uL (0.0-0.2); Absolute Eosinophil Count 0.27 10^3/uL (0.0-0.7); Absolute Monocyte Count 1.24 10^3/uL (0.1-0.8); Absolute Neutrophil Count 11.98 10^3/uL (1.2-6.7)
== END 2022-12-20 15:26 | disposition home or self-care (01) ==
LOC: NCHCN 15:25
PROVIDERS: PCP Family Medicine; Visit Provider Family Medicine
DX: R55 Syncope and collapse (principal); R70.0 Elevated erythrocyte sedimentation rate
CPT/HCPCS: 85025

== ENCOUNTER → 2023-07-21 01:46 | Outpatient (CLI) | payer MEDICARE, SELFPAY ==
--- NOTE | 2023-07-21 | DI.MAMMO_ITS ---
Exam(s) MAMMO SCREENING EXAM: MAMMO SCREENING CLINICAL HISTORY: Z12.31 Screening mammogram TECHNIQUE: Mammograms were interpreted according to the usual protocol including computer analysis w light CAD system, tomosynthesis and C-view imaging. COMPARISON: 2014 - 2019 FINDINGS: The breasts are composed of scattered fibroglandular densities, Breast Density category B. No suspicious masses or suspicious microcalcifications are seen. No skin thickening or abnormal axillary lymph nodes are seen. There has been no significant change from prior exams. IMPRESSION: BI-RADS Category 1, Negative mammogram Yearly screening mammography is recommended. Breast Density - Category B, scattered fibroglandular densities. A negative radiographic report should not delay biopsy if a dominant or clinically suspicious mass is present. Up to ten percent of cancers are not identified on mammography. A negative report may reinforce clinical impression. Adenosis and dense breasts may obscure an underlying neoplasm. False positive reports average 6 to 10%. Patient will receive a letter notifying them of these results.
== END ==
PROVIDERS: PCP Family Medicine; Visit Provider Family Medicine
DX: Z12.31 Encounter for screening mammogram for malignant neoplasm of breast (principal)
CPT/HCPCS: 77063; 77067

== ENCOUNTER → 2023-09-10 00:42 | Outpatient (CLI) | payer MEDICARE, SELFPAY ==
--- NOTE | 2023-09-10 09:40 | DI.MRI_ITS ---
Exam(s) MR ANGIO BRAIN WO CLINICAL HISTORY: Trigeminal neuralgia, G50.0. TECHNIQUE: 3D [id number] study was performed without contrast. COMPARISON: None. FINDINGS: Carotid Arteries: Petrous: Normal. Cavernous: Normal. Cerebral: Normal. Middle Cerebral Arteries: Right: No aneurysm or significant stenosis. Left: No aneurysm or significant stenosis. Anterior Cerebral Arteries: Right: No aneurysm or significant stenosis. Left: No aneurysm or significant stenosis. Posterior cerebral arteries: Right: No aneurysm or significant stenosis Left: No aneurysm or significant stenosis Vertebral Arteries: Right: No aneurysm or significant stenosis. No dissection. Left: No aneurysm or significant stenosis. No dissection.. Basilar Artery: No aneurysm or significant stenosis. Prominent left-sided aberrant vessel arising f rom the basilar artery extending anteriorly into the left Meckel's cave. It measures on up to 4 mill imeters in diameter. Small Vessels: No evidence of beading. 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 DATA REPOSITORY:
[2023-09-10] MEDS: Gadoterate meglumine 20 ML VIAL 16 ML IVP (09:42)
[2023-09-10] MEDS: Normal Saline - Diluent 50 ML VIAL 15 ML IJ (09:43)
--- NOTE | 2023-09-10 10:20 | DI.MRI_ITS ---
Exam(s) MR BRAIN WO/W EXAM: MR BRAIN WO/W CLINICAL HISTORY: Trigeminal neuralgia, G50.0. TECHNIQUE: Multiplanar multisequence MRI of the brain was performed. CONTRAST MATERIAL: IV Contrast: 16 ML of Dotarem contrast administered. COMPARISON: MR MR ANGIO BRAIN WO from 09/10/2023 FINDINGS: VENTRICLES AND EXTRA AXIAL SPACES: Normal in size and morphology for the patient's age. HEMORRHAGE: None. CEREBRAL PARENCHYMA: No focus of restricted diffusion to suggest acute infarct. No space-occupying le moncho identified. Scattered high signal foci in the white matter consistent with sequela of microvasc ular disease. MIDLINE SHIFT: None. BRAINSTEM/CEREBELLUM: Normal. Trigeminal nerves appear normal where visualized. CALVARIUM: Hyperostosis frontalis interna ENHANCEMENT: No suspicious enhancement identified. VISUALIZED PARANASAL SINUSES/MASTOIDS: Clear. Orbits: Unremarkable. Pituitary: Normal. Vasculature: Normal flow voids. IMPRESSION: Unremarkable MRI of the brain. DATA REPOSITORY:
== END ==
PROVIDERS: PCP Family Medicine; Visit Provider Family Medicine
DX: G50.0 Trigeminal neuralgia (principal)
CPT/HCPCS: 70544; 70553

== ENCOUNTER → 2023-09-11 08:47 | Outpatient (BNVA) | payer MEDICARE, SELFPAY | PROVIDERS: PCP Family Medicine; Referring Provider Family Medicine; Visit Provider Psychiatry & Neurology Neurology | DX: Q27.8 Other specified congenital malformations of peripheral vascular system (principal); R51.9 Headache, unspecified; R20.2 Paresthesia of skin | CPT/HCPCS: 99215; G2212 ==

== ENCOUNTER 2023-10-06 15:31 | Outpatient (CLI) | payer MEDICARE, SELFPAY ==
--- NOTE | 2023-10-06 15:38 | DI.RAD_ITS ---
Exam(s) XR KNEE RT 3V AP,LAT,AMY EXAM: XR KNEE RT 3V AP,LAT,AMY CLINICAL HISTORY: OA R KNEE. TECHNIQUE: 2D digital imaging was performed. COMPARISON: CR XR KNEE RT 3V AP,LAT,AMY from 12/17/2021 FINDINGS: Four views No evidence of acute fracture. Joint effusion noted. There is advanced narrowing of the medial compartment again noted as well as marginal osteophytes. N o significant narrowing of the lateral compartment although small osteophytes. Moderate degenerative changes noted in the patellofemoral compartment. IMPRESSION: There is advanced [id number] narrowing of the medial compartment of the right knee again noted. Al so marginal osteophytes. Frail radiographic change compared to 12/17/2021. DATA REPOSITORY: RADIATION DOSE DELIVERED:
== END 2023-10-06 15:32 | disposition home or self-care (01) ==
LOC: DIORS 15:31
PROVIDERS: PCP Family Medicine; Referring Provider Family Medicine; Visit Provider Student in an Organized Health Care Education/Training Program
DX: M17.11 Unilateral primary osteoarthritis, right knee (principal)
CPT/HCPCS: 73562; 99213

== ENCOUNTER 2023-12-01 19:03 | Outpatient (REF) | payer MEDICARE, SELFPAY ==
[2023-12-01 19:41] LABS: Abs Immature Grans 0.02 10^3/uL (0.0-0.06); Absolute Basophil Count 0.06 10^3/uL (0.0-0.2); Absolute Eosinophil Count 0.17 10^3/uL (0.0-0.7); Absolute Monocyte Count 0.59 10^3/uL (0.1-0.8); Absolute Neutrophil Count 5.27 10^3/uL (1.2-6.7); Basophils % 0.8 %; ESR 24 mm/hr (0-30); Eosinophils % 2.2 %; HCT 40.9 % (36.0-46.0); HGB 13.4 g/dL (11.2-15.7); Immature Grans % 0.3 %; Lymphocytes % 21.8 %; MCH 31.9 pg (27.0-33.0); MCHC 32.8 % (32.0-36.0); MCV 97 fL (80-95); MPV 10.7 fL (8.0-11.0); Monocytes % 7.6 %; Neutrophils % 67.3 %; Platelet Count 259 10^3/uL (130-400); RDW 13.1 % (11.7-14.6); RDW-SD 46.7 fL; WBC 7.81 10^3/uL (4.4-10.8)
[2023-12-01 19:57] LABS: Iron 79 ug/dL (50-170); Total Iron Binding Capacity 303 ug/dL (250-450); Transferrin Sat 26 % (15-50)
[2023-12-01 20:24] LABS: Ferritin 273 ng/mL (8-252)
[2023-12-01 22:35] LABS: Anion Gap 11.1 mmol/L (3-11); BUN 23 mg/dL (7-18); CO2 25.9 mmol/L (21.0-32.0); CREATININE 1.2 mg/dL (0.55-1.02); Calcium 9.9 mg/dL (8.5-10.1); Chloride 104 mmol/L (98-107); Estimated GFR 47.21 (mL/min/1.73m2); Glucose 152 mg/dL (74-106); Potassium 4.5 mmol/L (3.5-5.1); Sodium 141 mmol/L (136-145)
[2023-12-03 13:25] LABS: Albumin 56.1 % (55.8-66.1); Total Protein 7.1 g/dL (6.3-8.2)
[2023-12-03 14:12] LABS: ANA Interpretation Positive (Negative); ANA Titer Pattern 1:80 Speckled
== END 2023-12-01 19:04 | disposition home or self-care (01) ==
LOC: NCHCN 19:03
PROVIDERS: PCP Family Medicine; Visit Provider Family Medicine
DX: E61.1 Iron deficiency (principal)
CPT/HCPCS: 80048; 85652; 82728; 83540; 83550; 84165; 85025; 86038

== ENCOUNTER 2024-08-24 18:16 | Outpatient (REF) | payer MEDICARE, BC, SELFPAY ==
[2024-08-24 15:23] LABS: HCT 39.3 % (36.0-46.0); HGB 13.2 g/dL (11.2-15.7); MCH 31.4 pg (27.0-33.0); MCHC 33.6 % (32.0-36.0); MCV 94 fL (80-95); MPV 10.7 fL (8.0-11.0); Platelet Count 226 10^3/uL (130-400); RDW 13.2 % (11.7-14.6); RDW-SD 44.8 fL; WBC 7.56 10^3/uL (4.4-10.8)
[2024-08-24 15:59] LABS: ALT 29 U/L (14-59); AST 17 U/L (15-37); Albumin 3.7 g/dL (3.4-5.0); Alkaline Phosphatase 85 U/L (46-116); Anion Gap 6.9 mmol/L (3-11); BUN 22 mg/dL (7-18); Bilirubin, Total 0.5 mg/dL (0.2-1.0); CO2 28.1 mmol/L (21.0-32.0); CREATININE 1.1 mg/dL (0.55-1.02); Calcium 9.7 mg/dL (8.5-10.1); Chloride 104 mmol/L (98-107); Ferritin 269 ng/mL (8-252); Glucose 152 mg/dL (74-106); Potassium 4.5 mmol/L (3.5-5.1); Sodium 139 mmol/L (136-145); Total Protein 7.5 g/dL (6.4-8.2)
[2024-08-24 16:13] LABS: COMMENT (LAB VIEW ONLY) 92.42 mg/dL; Microalb ug/mg Crea 19.5 ug/mg Cr
[2024-08-24 17:13] LABS: Iron 57 ug/dL (50-170); Total Iron Binding Capacity 284 ug/dL (250-450); Transferrin Sat 20 % (15-50)
[2024-08-25 09:50] LABS: Hepatitis C Ab w Rflx HCV PCR Negative (Negative)
== END 2024-08-24 18:17 | disposition home or self-care (01) ==
LOC: NCHCN 18:16
PROVIDERS: PCP Family Medicine; Visit Provider Family Medicine
DX: E61.1 Iron deficiency (principal); I10 Essential (primary) hypertension; Z11.59 Encounter for screening for other viral diseases
CPT/HCPCS: 80053; 85027; 86803; 82043; 82570; 82728; 83540; 83550

== ENCOUNTER 2024-08-26 01:11 | Outpatient (CLI) | payer MEDICARE, BC, SELFPAY ==
--- NOTE | 2024-08-26 | DI.DEXA_ITS ---
Exam(s) XR DEXA BONE DENSITY W/WO LEANA EXAM: XR DEXA BONE DENSITY W/WO LEANA CLINICAL HISTORY: Asymptomatic menopausal state, Z78.0, postmenopausal TECHNIQUE: Routine DEXA evaluation of the lumbar spine, hip, or forearm. COMPARISON: No exams were available for comparison FINDINGS: Performed on a Hologic unit. Lateral image: There is a compression fracture of the L1 vertebral body with approximately 20 percent height loss. Lumbar Spine total T-score: -1.2 which is osteopenia range Hip total T-score:-0.1 which is normal range Independent reading at the level of the femoral neck yields T-score of -2.1 which is osteopenia range Forearm total T-score: -1.3 which is osteopenia range IMPRESSION: Bone mineral density measures in the osteopenia range. Fracture risk is moderate. However, there is a 20 percent wedge compression fracture of L1 vertebral body noted on the lateral image. Correlation with past medical/trauma history recommended. Note: Any spine fracture indicates 5x risk for subsequent spine fracture and 2x risk for subsequent hip fracture. World Health Organization criteria for BMD interpretation classify patients: Normal...... T- Score at or above -1.0 Osteopenic... T- Score between -1.0 and -2.5 Osteoporosis... T-Score at or below -2.5
== END 2024-08-26 01:31 ==
LOC: DI 01:11
PROVIDERS: PCP Family Medicine; Visit Provider Family Medicine
DX: M85.88 Other specified disorders of bone density and structure, other site (principal); Z78.0 Asymptomatic menopausal state
CPT/HCPCS: 77080

== ENCOUNTER 2024-09-02 11:54 | Outpatient (REF) | payer MEDICARE, BC, SELFPAY ==
[2024-09-02 20:12] LABS: Vitamin D 25 Total 21 ng/mL (30-100)
== END 2024-09-02 11:55 | disposition home or self-care (01) ==
LOC: NCHCN 11:54
PROVIDERS: PCP Family Medicine; Visit Provider Family Medicine
DX: M85.89 Other specified disorders of bone density and structure, multiple sites (principal)
CPT/HCPCS: 82306

== ENCOUNTER → 2024-09-07 14:37 | Outpatient (BNVA) | payer MEDICARE, BC, SELFPAY | PROVIDERS: PCP Family Medicine; Referring Provider Family Medicine; Visit Provider Psychiatry & Neurology Neurology | DX: Q27.8 Other specified congenital malformations of peripheral vascular system (principal); R51.9 Headache, unspecified; R20.2 Paresthesia of skin; Z82.49 Family history of ischemic heart disease and other diseases of the circulatory system | CPT/HCPCS: 99213 ==